=== PATIENT | female | born 1960 | race Caucasian/White ===

== ENCOUNTER → 2016-03-27 | Outpatient (CLI) | payer OTHER ==
[~2016-03-27] MED LIST: ESTR0.62 PO; PROG100C6 PO
[2016-03-27 07:38] LABS: BASOPHILS % (AUTO) 1 % (0-2); EOSINOPHILS # (AUTO) 0.2 10^3uL; EOSINOPHILS % (AUTO) 3 % (0-4); LYMPHOCYTES # (AUTO) 2.4 X10^3; MEAN CORPUSCULAR HEMOGLOBIN 31.4 PG (26.0-34.0); MEAN CORPUSCULAR HGB CONC 34.5 g/dL (31.0-37.0); MEAN CORPUSCULAR VOLUME 91 FL (80-100); MEAN PLATELET VOLUME 8.7 FL (6.0-9.5); MONOCYTES # (AUTO) 0.7 X10^3; MONOCYTES % (AUTO) 10 % (3-11); NEUTROPHILS # (AUTO) 3.9 X10^3; NEUTROPHILS % (AUTO) 53 % (51-67); PLATELET COUNT 313 10^3uL (150-450); WHITE BLOOD COUNT 7.23 10^3uL (4.0-11.0)
[2016-03-27 08:27] LABS: ALBUMIN 4.4 g/dL (3.4-5.0); ANION GAP 16.6 MEQ/L (3-15); CALCULATED IONIZED CALCIUM 4.1 mg/dL (3.8-4.6); TOTAL PROTEIN 7.9 g/dL (6.4-8.5)
== END ==
LOC: LAB 07:24
PROVIDERS: ATTEND Nurse Practitioner Family
DX: E66.9 Obesity, unspecified (principal)
CPT/HCPCS: 36415; 80053; 80061; 84443; 85025

== ENCOUNTER → 2016-04-03 | Outpatient (CLI) | payer OTHER ==
--- NOTE | 2016-04-03 14:05 | Diagnostic Imaging Report ---
INDICATION: Postmenopausal, screening for osteoporosis. Comparison: None. Discussion: Bone mineral density measurements of the lumbar spine and bilateral hips were performed on a [employer] DEXA scanner. Bone mineral density of the lumbar spine measures 1.104 g per centimeter squared which correlates to a T score of -0.8, normal. Bone mineral density of the right hip measures 0.811 g per centimeters squared which correlates to a T score of -1.6, osteopenic. Bone mineral density of the left hip measures 0.847 g per centimeter squared which correlates to a T score of -1.3, osteopenic. This scan is considered osteopenic according to the World Health Organization guidelines. This indicates an increased risk of fracture. Treatment is advised. A followup DEXA in one year is recommended. Please refer to the detailed Bone Density report faxed separately from this report. IMPRESSION: Osteopenia with a slight increased fracture risk. Dictated by: Dictated on workstation # [id number]
--- NOTE | 2016-04-04 09:29 | Diagnostic Imaging Report ---
DIG CARLOS BILAT SCREEN W CAD Comparison: Analog mammograms from 2005 and 2009 Indication: Screening mammography. Technique: Digital screening mammography was obtained with a computer-aided detection (CAD) system. Findings: There are scattered fibroglandular densities. Bilateral retropectoral silicone breast implants are again seen, there is no evidence of extracapsular rupture. No dominant mass, suspicious microcalcifications or architectural distortion to suggest malignancy. Impression: Stable mammogram without evidence of malignancy. Followup screening mammogram in 12 months is recommended. ACR BI-RADS Category 2: Benign findings. Result letter will be mailed to the patient. Note: At least 10% of breast cancer is not imaged by mammography. Dictated by: Dictated on workstation # [id number]
== END ==
LOC: RAD 12:54
PROVIDERS: ATTEND Nurse Practitioner Family
DX: Z12.31 Encounter for screening mammogram for malignant neoplasm of breast (principal); Z13.820 Encounter for screening for osteoporosis; Z01.419 Encounter for gynecological examination (general) (routine) without abnormal findings; M85.89 Other specified disorders of bone density and structure, multiple sites
CPT/HCPCS: 77080; G0202

== ENCOUNTER → 2016-04-11 | Outpatient (CLI) | payer OTHER | LOC: LAB 11:31 | PROVIDERS: ATTEND Nurse Practitioner Family | DX: M85.80 Other specified disorders of bone density and structure, unspecified site (principal) | CPT/HCPCS: 36415; 82306 ==

== ENCOUNTER → 2016-05-28 | Outpatient (CLI) | payer OTHER | LOC: LAB 12:53 | PROVIDERS: ATTEND Nurse Practitioner Family | DX: R94.6 Abnormal results of thyroid function studies (principal) | CPT/HCPCS: 36415; 84443 ==